=== PATIENT | female | born 1965 ===

== ENCOUNTER 2023-04-14 10:03 | Outpatient (CLI) | payer OTHER | END 2023-04-14 11:11 | disposition home or self-care (01) | LOC: SONOGRAMA 10:03 | PROVIDERS: ATTEND General Practice | DX: E04.2 Nontoxic multinodular goiter (principal); E11.65 Type 2 diabetes mellitus with hyperglycemia ==

== ENCOUNTER 2023-06-22 05:25 | Emergency (ER) | payer OTHER ==
[~2023-06-22] VITALS: Ht 162.6 cm; Wt 69.4 kg
[2023-06-22] MEDS ORDERED: CRESTOR10 MG (05:37)
[2023-06-22] MEDS ORDERED: RISEDRONATE SOD35 M1 (05:38)
[2023-06-22] MEDS ORDERED: CALCIUM (05:40)
[2023-06-22] MEDS ORDERED: TAMS0.4C PO (09:06)
[2023-06-22] MEDS ORDERED: KETO10TA2 PO (09:06)
== END 2023-06-22 10:29 | disposition home or self-care (01) ==
LOC: ER 05:25
PROVIDERS: General Practice
DX: N20.1 Calculus of ureter (principal); R10.9 Unspecified abdominal pain; E11.9 Type 2 diabetes mellitus without complications; Z91.018 Allergy to other foods

== ENCOUNTER 2024-01-19 08:16 | Outpatient (CLI) | payer OTHER ==
[~2024-01-19 08:16] MED LIST: CALCIUM; CRESTOR10 MG; KETO10TA2 PO; RISEDRONATE SOD35 M1; TAMS0.4C PO
== END 2024-01-19 08:17 | disposition home or self-care (01) ==
LOC: NUCLEAR 08:16
PROVIDERS: ATTEND Internal Medicine Hematology & Oncology
DX: D05.11 Intraductal carcinoma in situ of right breast (principal); C79.51 Secondary malignant neoplasm of bone

== ENCOUNTER 2025-03-06 09:57 | Outpatient (CLI) | payer OTHER | END 2025-03-06 09:59 | disposition home or self-care (01) | LOC: SONOGRAMA 09:57 | DX: E11.65 Type 2 diabetes mellitus with hyperglycemia (principal); E66.3 Overweight; E04.2 Nontoxic multinodular goiter ==